=== PATIENT | female | born 1990 | race Caucasian/White ===

== ENCOUNTER 2017-06-03 12:39 | Emergency (ER) | payer BC ==
--- NOTE | 2017-06-03 13:36 | UC ---
Saulo Carnes Jennifer, scribed for eDlla Phan MD on 06/03/17 at 1310 . Complaint Female HPI - HPI Summary HPI Summary: The patient is a 26 year old female who presents with left sided flank and abdominal pain that began yesterday. The patient reports that yesterday she woke up with bladder pain and peed blood clots. She explains that the pain was better throughout the day but increased into the evening and she vomited six times. She last vomited at around 01:00 and didnt fall asleep until 04:00. She reports she is feeling better since last night and the pain is now a 4/10. However, her urine is now completely red. The patient reports it feels like her bladder wont empty. Deep breaths aggravate the pain, but crunching over alleviates the pain. She additionally reports fever and increased fatigue for a week and 4-5 episodes of water diarrhea yesterday, but states this isnt completely abnormal since she has IBS. The patient denies sore throat, dysuria, and problems with eating or drinking. Yesterday drank 700cc of cranberry juice, has had 1.5 liters of fluid over the past 24 hours. - History Of Current Complaint Chief Complaint: UCAbdominalPain Stated Complaint: ABDOMINAL PAIN Time Seen by Provider: 06/03/17 12:57 Hx Obtained From: Patient Hx Last Menstrual Period: 06/03/2017 Onset/Duration: Sudden Onset, Lasting Days - one day, Still Present Timing: Constant Severity Initially: Moderate Severity Currently: Moderate Pain Intensity: 5 Pain Scale Used: 0-10 Numeric Aggravating Factor(s): Other - Deep breaths Alleviating Factor(s): Position - Crunched over Associated Signs And Symptoms: Positive: Back Pain, Vomiting(# Of Episodes =) - 6 - Risk Factors Ectopic Risk Factor: Negative - Allergies/Home Medications Allergies/Adverse Reactions: Allergies Allergy/AdvReac Type Severity Reaction Status Date / Time bee venom protein (honey bee) Allergy Swelling Verified 06/03/17 12:48 Pertussis Vaccines Allergy Fever Verified 06/03/17 12:48 Home Medications: Home Medications Sertraline HCl [Zoloft] 100 mg PO DAILY 06/03/17 [History Confirmed 06/03/17] Tri Sprintec Bcp 1 tab PO DAILY 06/03/17 [History Confirmed 06/03/17] PMH/Surg Hx/FS Hx/Imm Hx GI/ History: Other Other GI/ History: IBS Neurological History: Other Other Neurological History: Vertigo Psychological History: Anxiety - Surgical History Surgical History: Yes Surgery Procedure, Year, and Place: wisdom teeth - Family History Known Family History: Positive: Hypertension - Father - Social History Occupation: Employed Full-time - [employer]. Lives: Alone Alcohol Use: Occasionally Substance Use Type: Marijuana Substance Use Comment - Amount & Last Used: "sometimes" Smoking Status (MU): Never Smoked Tobacco Review of Systems Constitutional: Fever, Fatigue, Other - Problems with eating or drinking ENT: Negative - Sore throat Gastrointestinal: Abdominal Pain, Vomiting, Diarrhea Genitourinary: Negative - Dysuria, Hematuria, Frequency, Other - left flank pain , All Other Systems Reviewed And Are Negative: Yes Physical Exam Triage Information Reviewed: Yes Appearance: Well-Appearing, Pain Distress - mild to moderate., Obese Vital Signs: Initial Vital Signs Temp 99.1 F 06/03/17 12:45 Pulse 70 06/03/17 12:45 Resp 18 06/03/17 12:45 BP 129/65 06/03/17 12:45 Pulse Ox 98 06/03/17 12:45 ENT: Positive: Pharynx normal Neck: Positive: Supple, Nontender, No Lymphadenopathy Respiratory: Positive: Lungs clear, Normal breath sounds Cardiovascular: Positive: RRR, No Murmur Abdomen Description: Positive: Nontender, No Organomegaly, Soft, CVA Tenderness (L) - Percussive tenderness is a bit inferior to the CVA, overall mild. Bowel Sounds: Positive: Present Musculoskeletal Exam: Normal Neurological Exam: Normal Psychological Exam: Normal Skin Exam: Normal Diagnostics - Laboratory Diagnostic Studies Completed/Ordered: UA with 3+ blood and trace of urine esterace. Complaint Female Dx - Course Course Of Treatment: The patient is a 26 year old female who presents with left sided flank and abdominal pain that began yesterday. Pt medications reviewed this visit. Allergies noted. Begin bactrim with follow up by PMD. - Differential Dx/Diagnosis Differential Diagnosis/HQI/PQRI: Renal Colic, Ureteral Stone, Other - hemorrhagic cystitis Provider Diagnoses: hemorrhagic cystitis, possible early pyelenephritis. Less likely renal stones. Discharge - Sign-Out/Discharge Documenting (check all that apply): Discharge - Discharge Plan Condition: Stable Disposition: HOME Prescriptions: Sulfamethox/Trimethoprim DS* [Bactrim DS 800/160 TAB*] 1 tab PO BID #14 tab Patient Education Materials: Urinary Tract Infection in Women (ED) Referrals: No Primary Care Phys,NOPCP [Primary Care Provider] - Additional Instructions: Continue high intake of fluids, aiming for 2 liters of fluids per day. Begin course of bactrim for suspected hemorrhagic cystitis. This will give coverage should you be developing an early infection in the kidney. If you have recurrent vomiting and increasing pain, please go to the emergency room for testing and evaluation. Follow up is important. If you have persistence of flank pain, please see your primary care physician within the next 2 days. If your symptoms resolve quickly , you should have follow up later in the week to ensure that the blood is resolving. You can use ibuprofen 600mg up to 3x daily for control of pain. - Billing Disposition and Condition Condition: STABLE Disposition: HOME The documentation as recorded by the Saulo lovett Jennifer accurately reflects the service I personally performed and the decisions made by me, Della Phan MD.
== END 2017-06-03 13:44 | disposition home or self-care (01) ==
LOC: UCEAST 12:39
DX: N30.90 Cystitis, unspecified without hematuria (principal); Z88.7 Allergy status to serum and vaccine
CPT/HCPCS: 81003; 87077; 87086; 99202; G0463

== ENCOUNTER 2017-06-05 09:44 | Emergency (ER) | payer BC ==
--- NOTE | 2017-06-05 11:54 | UC ---
Abdominal Pain Female HPI - HPI Summary HPI Summary: Pt presents with intermittent flank pain and feeling SOB for the last 2 days. She tells me that she was seen here 2 days ago for hemorrhagic cystitis and placed on Bactrim. Her symptoms have resolved regarding that. However, after her visit that day (2 days ago) she began to have RIGHT sided flank pain (was previously left sided). This was intermittent and rated 4/10. She went for a walk later that night and felt SOB. No pain. Yesterday she felt fine and had no symptoms. Today she had LEFT flank pain and again felt SOB with a walk. Currently she is having RIGHT flank pain and no longer left flank pain. Does not feel SOB at rest. Denies fever, chills, cough, chest pain, abdominal pain, n/v/d/c, dizziness, headache, dysuria, vaginal bleeding/discharge, or hematuria. No recent travel. Non smoker. Does take an OBC - History of Current Complaint Chief Complaint: UCGeneralIllness Stated Complaint: ABD PAIN SHORT OF BREATH Time Seen by Provider: 06/05/17 11:53 Hx Obtained From: Patient Hx Last Menstrual Period: 06/03/17 Timing: Constant Severity Currently: Mild Pain Intensity: 3 Pain Scale Used: 0-10 Numeric Allergies/Adverse Reactions: Allergies Allergy/AdvReac Type Severity Reaction Status Date / Time bee venom protein (honey bee) Allergy Swelling Verified 06/05/17 09:55 Pertussis Vaccines Allergy Fever Verified 06/05/17 09:55 Home Medications: Home Medications Ibuprofen TAB* [Advil TAB*] 400 mg PO Q6HR PRN 06/05/17 [History Confirmed 06/05] Norgestimate-Ethinyl Estradiol [Kmt-Qz-Llrsosnj Tablet] 1 tab PO DAILY 06/05/17 [History Confirmed 06/05/17] PMH/Surg Hx/FS Hx/Imm Hx Previously Healthy: Yes Psychological History: Depression - Surgical History Surgical History: Yes Surgery Procedure, Year, and Place: wisdom teeth - Family History Known Family History: Positive: Hypertension - Father - Social History Lives: With Family Alcohol Use: Rare Substance Use Type: Marijuana Substance Use Comment - Amount & Last Used: 2 x weekly Smoking Status (MU): Never Smoked Tobacco Review of Systems Constitutional: Negative Skin: Negative Eyes: Negative ENT: Negative Respiratory: Shortness Of Breath Cardiovascular: Negative Gastrointestinal: Negative Genitourinary: Other - Flank pain Motor: Negative Neurovascular: Negative Musculoskeletal: Negative Neurological: Negative Psychological: Negative All Other Systems Reviewed And Are Negative: Yes Physical Exam - Summary Physical Exam Summary: GENERAL: NAD. WDWN. No pain distress. SKIN: No rashes, sores, ulcers, masses, lesions. HEENT: Head: AT/NC Eyes: PERRLA. EOM intact. Conjunctiva clear without inflammation or discharge. Nose: Nasal mucosa pink and moist. NTTP maxillary and frontal sinus. Throat: Posterior oropharynx without exudates, erythema, or tonsillar enlargement. Uvula midline. NECK: Supple. Nontender. No lymphadenopathy. CHEST: CTAB. No r/r/w. No accessory muscle use. Breathing comfortably and in no distress. CV: RRR. Without m/r/g. Pulses intact. Brisk cap refill. ABDOMEN: Soft. NTTP. No distention or guarding., No organomegaly. No CVA tenderness. Bowel sounds present x4. NEURO: Alert. CN II-XII grossly intact. PSYCH: Age appropriate behavior. Triage Information Reviewed: Yes Vital Signs: Initial Vital Signs Temp 98.5 F 06/05/17 09:57 Pulse 68 06/05/17 09:57 Resp 18 06/05/17 09:57 BP 124/81 06/05/17 09:57 Pulse Ox 100 06/05/17 09:57 Abd Pain Female Course/Dx - Course Course Of Treatment: EKG 52bpm slow sinus arrhytmia. No ST changes. As read by Dr. Simmons. CXR: IMPRESSION: NO EVIDENCE FOR ACTIVE CARDIOPULMONARY DISEASE. UA : Negative. I am unsure of the cause of her migrating flank pain and HOLLEY. I had a long discussion with her and have advised her to seek further evaluation of her symptoms in the ER. She was agreeable to this plan. Declined ambulance and would have her grandmother drive her. - Differential Dx/Diagnosis Provider Diagnoses: HOLLEY. Flank pain Discharge - Sign-Out/Discharge Documenting (check all that apply): Discharge/Admit/Transfer - Discharge Plan Condition: Stable Disposition: HOME Referrals: Marie Millan MD [Primary Care Provider] - Additional Instructions: [place] [facility] [place] [facility] [place] further evaluation of your shortness of breath and back pain - Billing Disposition and Condition Condition: STABLE Disposition: HOME
--- NOTE | 2017-06-05 12:45 | RAD ---
INDICATION: Shortness of breath. COMPARISON: There are no prior studies available for comparison. TECHNIQUE: Dual-energy PA and lateral views of the chest were obtained. FINDINGS: The heart is within normal limits in size. Mediastinal and hilar contours appear within normal limits. The lungs are clear. No pleural effusion is present. IMPRESSION: NO EVIDENCE FOR ACTIVE CARDIOPULMONARY DISEASE.
--- NOTE | 2017-06-06 14:20 | UC ---
- Progress Note Progress Note: 06/06/2017 Pt's urine culture positive for Staphylocccus saprophyticus. Pt was Rx Bactrim PO on 06/03/2017 which will cover for this bacteria. No change in medications. Nohemy Landeros PA-C Discharge - Sign-Out/Discharge Documenting (check all that apply): Discharge/Admit/Transfer - discharge home - Discharge Plan Condition: Stable Disposition: HOME Referrals: Marie Millan MD [Primary Care Provider] - Additional Instructions: Please go to the [facility] [place] [facility] for further evaluation of your shortness of breath and back pain - Billing Disposition and Condition Condition: STABLE Disposition: HOME
== END 2017-06-05 13:20 | disposition home or self-care (01) ==
LOC: UCEAST 09:44
DX: R06.00 Dyspnea, unspecified (principal); R10.9 Unspecified abdominal pain; N39.0 Urinary tract infection, site not specified; B95.7 Other staphylococcus as the cause of diseases classified elsewhere; Z88.7 Allergy status to serum and vaccine
CPT/HCPCS: 71046; 81002; 93005; 99212; G0463